=== PATIENT | female | born 1965 | race Caucasian/White ===

== ENCOUNTER → 2017-03-13 | Outpatient (CLI) | payer OTHER | LOC: BRMIMAGING 07:47 | PROVIDERS: ATTEND Family Medicine | DX: Z12.31 Encounter for screening mammogram for malignant neoplasm of breast (principal) | CPT/HCPCS: G0202 ==

== ENCOUNTER 2017-05-21 17:50 | Emergency (ER) | payer OTHER ==
[2017-05-21] MEDS ORDERED: LET GEL TOPICAL 1 EA SYR TP ONE (17:59)
--- NOTE | 2017-05-21 18:34 | EDPHY ---
H & P Time Seen by Provider: 05/21/17 18:22 HPI/ROS: CC: fell striking face and right knee HPI: This is a 51-year-old female who took a fall 20 min prior to admission. She has attempted going to a local restaurant and tripped on the sidewalk. Unfortunately she landed hard on her right knee and then face. She denies any injury to the thoracoabdominal region - such as chest ribs abdomen or pelvis. She also complains of no back pain or thoracic pain or lumbar sacral spine pain or neck pain. She has full recall of the event. There is no fluid from the ears however there is fluid from the nose that she had a bloody nose. There is no amnesia. There is no presyncopal symptoms prior to the trip and fall. She has been able to form new memories since. She struck the right knee directly on the pavement. She did not recall as twisting injury whatsoever. She has since been able to walk on it and while it feels stiff and achy overlying the top of the knee itself she does not have any sense of laxity or instability. Of note, she try works for [employer], but her next day of work is not for 2 days. Pt queried and denies: prior hx of substance abuse family history of substance abuse or current or prior psychiatric history. ROS: Constitutional - feeling well before the fall Head no injury or hematoma, though does recall injury to the face. No neck pain. The she had some injury to the upper lip does not feel like she has any malocclusion or difficulty closing her mouth. Eyes - no diplopia, blurred vision. ENT - no earache, no fluid from ear. The blood from the nose to spontaneously. No facial injury Neck: no pain or decreased ROM, nontender in Thorax did not injury to chest or ribs or spine, no shortness of breath Abdominal - denies any abdomen, or back injury. No nausea. Musculoskeletal - no joint or muscle pain = except for the right knee Integument - no lacerations - though abrasions to face and knee Neurological - no headache, numbness, tingling, or paresthesias. No focal motor weakness. No amnesia or LOC. No fluid from ear or nose 10 point ROS otherwise negative Smoking Status: Never smoked Physical Exam: Constitutional: Well-nourished, well-developed, no acute distress. Obese, good eye contact. Awake alert and oriented No odor of alcohol Neck: Nontender without step off, with full active range of motion without pain Eyes: Pupils equal and reactive. Extraocular muscles intact. Visual ipnto intact. ENT: Ears are without hemotympanum. Mouth exam, atraumatic. STS and echymosis on the nose, left cheek, without step off. Whether is bruising to the superior portion of the area called cupids bow, there is no similar ecchymosis on the inside lip nor injury to the alveolar ridge, with an intact frenulum. The teeth are well seated with normal occlusion and no looseness. There is no signs of nasal septum deviation. No septal hematoma. No pain with palpation of the maxilla and attempts to move it which it did not Chest: Ribs are nontender. No signs of splinting respirations. Back: Nontender thoracic and lumbar sacral spine, as well as cervical spine. No step off. Abdomen: Nontender. No organomegaly. No abrasions Musculoskeletal: Moves all extremities with achiness to the right knee. No joint swelling. No deformities. Ecchymosis overlying the right knee which has a moderate abrasion overlying the patella itself,and there is some tenderness over the anterior knee. There is however no sense of fluid, nor effusion. There is no instability. Hardeep's is negative. Collateral ligaments are stable. ROM to 90 degrees. Skin: No observed lacerations. Skin is warm and dry. Normal motor and sensation Neuro: Alert and oriented with a GCS of 15. No acute distress. No headache. Psych: Normal mood and affect. Constitutional: Initial Vital Signs Temperature (C) 36.6 C 05/21/17 17:59 Heart Rate 71 05/21/17 17:59 Respiratory Rate 20 12 17:59 Blood Pressure 173/99 H 05/21/17 17:59 O2 Sat (%) 98 05/21/17 17:59 O2 Delivery Mode Room Air Allergies/Adverse Reactions: Penicillins Allergy (Verified 05/21/17 17:57) Home Medications: Medication Instructions Recorded Lisinopril 05/21/17 Medical Decision Making - Diagnostics Imaging Results: My Plain Film Review: Plain film of right knee 3 view series. Interpreted by me contemporaneously. Negative for fracture. No effusion. Some anterior soft tissue swelling. Imaging: I viewed and interpreted images myself ED Course/Re-evaluation: The cervical spine was cleared clinically by nexus criteria. X-rays were taken of the right knee. Interpreted by me contemporaneously as negative. She declined ibuprofen, Tylenol or crutches. I met with her after the x-rays and discussed use of ice, brain rest, awakening every 3 hr for the 1st 24 hr, as well as judicious use of ibuprofen and Tylenol. Differential Diagnosis: Differential diagnosis includes but is not limited to Intracranial: subdural hematoma, epidural hematoma, peripheral contusion, concussion. Facial injuries to include: Orbital fracture, nasal septal hematoma, fractured of nose, maxilla fracture. Cervical spine: Fracture spine, dislocation spine, muscle strain Spine: Thoracic and lumbar sacral spine fracture or dislocation Extremity injuries to include: Fracture, Sprain, Strain, Dislocation, Nerve injury, Contusion - Data Points Medications Given: Discontinued Medications Tetracaine/Epinephrine/Lidocaine (Let Gel Topical) 1 ea TP EDNOW ONE Stop: 05/21/17 18:00 Last Admin: 05/21/17 18:28 Dose: 1 ea Departure - Departure Disposition: Home, Routine, Self-Care Clinical Impression: Facial contusion Qualifiers: Encounter type: initial encounter Qualified Code(s): S00.83XA - Contusion of other part of head, initial encounter Contusion of knee, right Qualifiers: Encounter type: initial encounter Qualified Code(s): S80.01XA - Contusion of right knee, initial encounter Condition: Good Instructions: Black Eye (ED), Contusion in Adults (ED), Knee Pain (ED) Additional Instructions: Ice - use the NURIA WRAP to hold in place Tylenol and Advil works well together the combination: Tylenol 650 mg and Advil 400 mg every 6 hours No work for 5 days See your PCP in 5 days. No blowing your nose! Afrin helps to keep the nose passages open - for the next 3 days. BRAIN REST - limit email and txting. Referrals: Raven Adame MD [Primary Care Provider] - As per Instructions Stand Alone Forms: Work Excuse
[2017-05-21 19:50] VITALS: BP 143/93; PULSE 70; RESP 16; TEMP 98.1; O2SAT 95
== END 2017-05-21 19:52 | disposition home or self-care (01) ==
LOC: CED 17:50
DX: S00.83XA Contusion of other part of head, initial encounter (principal); S80.01XA Contusion of right knee, initial encounter; W01.198A Fall on same level from slipping, tripping and stumbling with subsequent striking against other object, initial encounter; Y92.480 Sidewalk as the place of occurrence of the external cause
CPT/HCPCS: 73562-PO